=== PATIENT | female | born 1950 | race Caucasian/White ===

== ENCOUNTER → 2017-07-12 | Outpatient (CLI) | payer BC ==
[~2017-07-12] MED LIST: ALEVE220 MG PO; APAP500 PO; HYDROCODONE-APA1 TA1 PO; IBUPROFEN 200200 M1 PO; LEVOTHYROXIN0.112 M1 PO; LEVOTHYROXINE0.05 MG PO; ZYRTEC10 M5 PO
== END ==
LOC: RAD 02-22 08:57
DX: Z12.31 Encounter for screening mammogram for malignant neoplasm of breast (principal)

== ENCOUNTER → 2017-12-29 | Outpatient (CLI) | payer BC | LOC: RAD 07:07 → MRI 07:07 | DX: M46.86 Other specified inflammatory spondylopathies, lumbar region (principal); M48.061 Spinal stenosis, lumbar region without neurogenic claudication; M81.0 Age-related osteoporosis without current pathological fracture; M85.89 Other specified disorders of bone density and structure, multiple sites; G89.29 Other chronic pain; Z78.0 Asymptomatic menopausal state ==

== ENCOUNTER → 2018-02-01 | Outpatient (CLI) | payer BC, OTHER | END | disposition home or self-care (01) | LOC: RAD 09:53 | DX: M43.17 Spondylolisthesis, lumbosacral region (principal) ==

== ENCOUNTER → 2019-01-03 | Outpatient (CLI) | payer BC, OTHER | LOC: RAD 09:38 | DX: Z12.31 Encounter for screening mammogram for malignant neoplasm of breast (principal) ==

== ENCOUNTER → 2020-03-12 | Outpatient (CLI) | payer OTHER | LOC: RAD 12:24 → BC 15:30 | PROVIDERS: ATTEND Family Medicine | DX: Z12.31 Encounter for screening mammogram for malignant neoplasm of breast (principal); N64.89 Other specified disorders of breast ==